=== PATIENT | male | born 1965 | race Caucasian/White ===

== ENCOUNTER 2017-11-22 00:24 | Emergency (ER) | payer OTHER ==
[~2017-11-22 00:24] MED LIST: EPINEPHrine 1:10,000 1 MG/10 ML Syringe IVPUSH ONE
[2017-11-22] MEDS ORDERED: Succinylcholine 200 MG/10 ML MDV IV ONE (00:25)
[2017-11-22] MEDS ORDERED: Sodium Chloride 0.9% 1,000 ML IV ONE ×4 (00:25→05:13)
[2017-11-22] MEDS ORDERED: EPINEPHrine 1:10,000 1 MG/10 ML Syringe IVPUSH ONE ×10 (00:27→04:01)
[2017-11-22] MEDS ORDERED: Sodium Bicarbonate 8.4% 50 MEQ/50 ML Syringe IVPUSH ONE (00:37)
[2017-11-22] MEDS ORDERED: Midazolam 1 MG/ML 2 ML SDV ONE (00:55)
[2017-11-22 01:00] LABS: CHLORIDE,CL 104 mmol/L (98-107); SODIUM,NA 140 mmol/L (136-148)
[2017-11-22] MEDS ORDERED: Midazolam 1 MG/ML 2 ML SDV IVPUSH ONE (01:10)
[2017-11-22] MEDS ORDERED: DOPamine/Dextrose 5%-Water 400 MG/250 ML BAG ONE (01:11)
[2017-11-22] MEDS ORDERED: DOPamine/Dextrose 5%-Water 400 MG/250 ML BAG IV SCH ×2 (01:17)
[2017-11-22] MEDS ORDERED: Sodium Chloride 0.9% 50 ML ONE (01:29)
--- NOTE | 2017-11-22 01:48 | EDM.PDOC ---
ED HPI GENERAL MEDICAL PROBLEM - General Chief Complaint: CPR in Progress Stated Complaint: NON RESPONSIVE Time Seen by Provider: 11/22/17 01:10 Source of Information: Reports: EMS, EMS Notes Reviewed History Limitations: Reports: No Limitations - History of Present Illness INITIAL COMMENTS - FREE TEXT/NARRATIVE: HISTORY AND PHYSICAL: History of present illness: 52-year-old male arriving by EMS with CPR in progress after witnessed collapse. As per roommate patient initially was complaining of some chest pain and then collapsed. He then called EMS. EMS states that on seeing patient was pulseless and CPR was started. Patient was given epinephrine as well as amiodarone in route. On arrival to emergency department patient was in PE a. After several rounds of epinephrine as well as 1 dose of bicarbonate we were able to establish a pulse after I removed Felice air and reintubated patient with 7.5 tube. We started Levothroid as well as dopamine to maintain blood pressure. Right femoral central line was started. Patient was transferred with Dr. Kit Villarreal accepting. Patient has a history of alcohol abuse. Of note EMS did give patient Narcan with no significant response. Initial EKG as well as troponin suggests possible WI. Review of systems: As per history of present illness and below otherwise all systems reviewed and negative. Past medical history: As per history of present illness and as reviewed below otherwise noncontributory. Surgical history: As per history of present illness and as reviewed below otherwise noncontributory. Social history: No reported history of drug or alcohol abuse. Family history: As per history of present illness and as reviewed below otherwise noncontributory. Physical exam: HEENT: Atraumatic, normocephalic, pupils reactive, negative for conjunctival pallor or scleral icterus, mucous membranes moist, throat clear, neck supple, nontender, trachea midline. Lungs: Clear to auscultation, breath sounds equal bilaterally, chest nontender. Heart: S1S2, regular, negative for clicks, rubs, or JVD. Abdomen: Soft, nondistended, nontender. Negative for masses or hepatosplenomegaly. Negative for costovertebral tenderness. Pelvis: Stable nontender. Genitourinary: Deferred. Rectal: Deferred. Extremities: Atraumatic, negative for cords or calf pain. Neurovascular unremarkable. Neuro: Awake, alert, oriented. Cranial nerves II through XII unremarkable. Cerebellum unremarkable. Motor and sensory unremarkable throughout. Exam nonfocal. Diagnostics: CBC, CMP, troponin, chest x-ray, EKG Therapeutics: Epinephrine, Levophed, dopamine, succinylcholine, 2 of Versed Impression: Cardiac arrest Plan: Please see above H&P. Definitive disposition and diagnosis as appropriate pending reevaluation and review of above. - Related Data Allergies Allergy/AdvReac Type Severity Reaction Status Date / Time Unable to Assess Allergy Unverified 11/22/17 01:15 Home Meds: Home Meds . [Unable to Verify Home Med List] 11/22/17 [History] ED ROS GENERAL - Review of Systems Review Of Systems: ROS reveals no pertinent complaints other than HPI. ED EXAM, GENERAL - Physical Exam Exam: See Below Course - Orders/Labs/Meds Orders: Active Orders 24 hr Category Date Time Status EKG Documentation Completion [RC] STAT Care 11/22/17 01:14 Active Hirsch Catheter Insertion [Insert Urinary Catheter] [OM. Care 11/22/17 04:00 Ordered PC] Q24H Urinary Catheter Assessment [RC] ASDIRECTED Care 11/22/17 04:00 Active Chest 1V Frontal [CR] Stat Exams 11/22/17 01:15 Taken DRUG SCREEN, URINE [URCHEM] Stat Lab 11/22/17 00:35 Ordered UA W/MICROSCOPIC [URIN] Stat Lab 11/22/17 00:35 Ordered Labs: Laboratory Tests 11/22/17 11/22/17 11/22/17 Range/Units 00:20 00:20 00:23 WBC 15.57 H (4.0-11.0) K/uL RBC 5.13 (4.50-5.90) M/uL Hgb 16.9 (13.0-17.0) g/dL Hct 49.8 (38.0-50.0) % MCV 97.1 (80.0-98.0) fL MCH 32.9 H (27.0-32.0) pg MCHC 33.9 (31.0-37.0) g/dL RDW Std Deviation 47.1 (28.0-62.0) fl RDW Coeff of Luz 13 (11.0-15.0) % Plt Count 168 (150-400) K/uL MPV 10.00 (7.40-12.00) fL Add Manual Diff YES Neutrophils % (Manual) 25 L (48.0-80.0) % Band Neutrophils % 6 % Lymphocytes % (Manual) 64 H (16.0-40.0) % Monocytes % (Manual) 2 (0.0-15.0) % Eosinophils % (Manual) 1 (0.0-7.0) % Basophils % (Manual) 1 (0.0-1.5) % Myelocytes % 1 % Nucleated RBC % 0.0 /100WBC Absolute Seg Neuts 3.9 (1.4-5.7) Band Neutrophils # 0.9 Lymphocytes # (Manual) 10.0 H (0.6-2.4) Monocytes # (Manual) 0.3 (0.0-0.8) Eosinophils # (Manual) 0.2 (0.0-0.7) Basophils # (Manual) 0.2 H (0.0-0.1) Absolute Myelocytes 0.2 Nucleated RBCs # 0 K/uL Sodium 140 (136-148) mmol/L Potassium 3.8 (3.5-5.1) mmol/L Chloride 104 (98-107) mmol/L Carbon Dioxide 19.2 L (21.0-32.0) mmol/L BUN 8 (7.0-18.0) mg/dL Creatinine 1.1 (0.8-1.3) mg/dL Est Cr Clr Drug Dosing TNP Estimated GFR (MDRD) > 60.0 ml/min Glucose 348 H (74-106) mg/dL POC Glucose (60-110) mg/dL Calcium 8.4 L (8.5-10.1) mg/dL Total Bilirubin 0.2 (0.2-1.0) mg/dL AST 52 H (15-37) IU/L ALT 42 (14-63) IU/L Alkaline Phosphatase 86 (46-116) U/L Troponin I 0.258 H* (0.000-0.056) ng/mL Total Protein 6.0 L (6.4-8.2) g/dL Albumin 2.7 L (3.4-5.0) g/dL Globulin 3.3 (2.0-3.5) g/dL Albumin/Globulin Ratio 0.8 L (1.3-2.8) Urine Color Urine Appearance Urine pH (5.0-8.0) Ur Specific [place] (1.001-1.035) Urine Protein (NEGATIVE) mg/dL Urine Glucose (UA) (NEGATIVE) mg/dL Urine Ketones (NEGATIVE) mg/dL Urine Occult Blood (NEGATIVE) Urine Nitrite (NEGATIVE) Urine Bilirubin (NEGATIVE) Urine Urobilinogen (<2.0) EU/dL Ur Leukocyte Esterase (NEGATIVE) Urine RBC (0-2/HPF) Urine WBC (0-5/HPF) Ur Epithelial Cells (NONE-FEW) Amorphous Sediment (NEGATIVE) Urine Bacteria (NEGATIVE) Urine Mucus (NONE-MOD) Salicylates 4.3 (0-20) mg/dL Urine Opiates Screen (NEGATIVE) Ur Oxycodone Screen (NEGATIVE) Urine Methadone Screen (NEGATIVE) Acetaminophen 0.0 ug/mL Ur Barbiturates Screen (NEGATIVE) Ur Phencyclidine Scrn (NEGATIVE) Ur Amphetamine Screen (NEGATIVE) U Methamphetamines Scrn (NEGATIVE) U Benzodiazepines Scrn (NEGATIVE) U Cocaine Metab Screen (NEGATIVE) U Marijuana (THC) Screen (NEGATIVE) Ethyl Alcohol mg/dL 11/22/17 11/22/17 11/22/17 Range/Units 00:23 00:35 00:35 WBC (4.0-11.0) K/uL RBC (4.50-5.90) M/uL Hgb (13.0-17.0) g/dL Hct (38.0-50.0) % MCV (80.0-98.0) fL MCH (27.0-32.0) pg MCHC (31.0-37.0) g/dL RDW Std Deviation (28.0-62.0) fl RDW Coeff of Luz (11.0-15.0) % Plt Count (150-400) K/uL MPV (7.40-12.00) fL Add Manual Diff Neutrophils % (Manual) (48.0-80.0) % Band Neutrophils % % Lymphocytes % (Manual) (16.0-40.0) % Monocytes % (Manual) (0.0-15.0) % Eosinophils % (Manual) (0.0-7.0) % Basophils % (Manual) (0.0-1.5) % Myelocytes % % Nucleated RBC % /100WBC Absolute Seg Neuts (1.4-5.7) Band Neutrophils # Lymphocytes # (Manual) (0.6-2.4) Monocytes # (Manual) (0.0-0.8) Eosinophils # (Manual) (0.0-0.7) Basophils # (Manual) (0.0-0.1) Absolute Myelocytes Nucleated RBCs # K/uL Sodium (136-148) mmol/L Potassium (3.5-5.1) mmol/L Chloride (98-107) mmol/L Carbon Dioxide (21.0-32.0) mmol/L BUN (7.0-18.0) mg/dL Creatinine (0.8-1.3) mg/dL Est Cr Clr Drug Dosing Estimated GFR (MDRD) ml/min Glucose (74-106) mg/dL POC Glucose (60-110) mg/dL Calcium (8.5-10.1) mg/dL Total Bilirubin (0.2-1.0) mg/dL AST (15-37) IU/L ALT (14-63) IU/L Alkaline Phosphatase (46-116) U/L Troponin I (0.000-0.056) ng/mL Total Protein (6.4-8.2) g/dL Albumin (3.4-5.0) g/dL Globulin (2.0-3.5) g/dL Albumin/Globulin Ratio (1.3-2.8) Urine Color YELLOW Urine Appearance CLEAR Urine pH 6.0 (5.0-8.0) Ur Specific [place] 1.025 (1.001-1.035) Urine Protein TRACE (NEGATIVE) mg/dL Urine Glucose (UA) NEGATIVE (NEGATIVE) mg/dL Urine Ketones NEGATIVE (NEGATIVE) mg/dL Urine Occult Blood SMALL H (NEGATIVE) Urine Nitrite NEGATIVE (NEGATIVE) Urine Bilirubin NEGATIVE (NEGATIVE) Urine Urobilinogen 0.2 (<2.0) EU/dL Ur Leukocyte Esterase TRACE (NEGATIVE) Urine RBC 0-1 (0-2/HPF) Urine WBC 2-3 (0-5/HPF) Ur Epithelial Cells FEW (NONE-FEW) Amorphous Sediment LIGHT (NEGATIVE) Urine Bacteria FEW (NEGATIVE) Urine Mucus LIGHT (NONE-MOD) Salicylates (0-20) mg/dL Urine Opiates Screen NEGATIVE (NEGATIVE) Ur Oxycodone Screen NEGATIVE (NEGATIVE) Urine Methadone Screen NEGATIVE (NEGATIVE) Acetaminophen ug/mL Ur Barbiturates Screen NEGATIVE (NEGATIVE) Ur Phencyclidine Scrn NEGATIVE (NEGATIVE) Ur Amphetamine Screen NEGATIVE (NEGATIVE) U Methamphetamines Scrn NEGATIVE (NEGATIVE) U Benzodiazepines Scrn NEGATIVE (NEGATIVE) U Cocaine Metab Screen NEGATIVE (NEGATIVE) U Marijuana (THC) Screen POSITIVE (NEGATIVE) Ethyl Alcohol 115 mg/dL 11/22/17 Range/Units 00:40 WBC (4.0-11.0) K/uL RBC (4.50-5.90) M/uL Hgb (13.0-17.0) g/dL Hct (38.0-50.0) % MCV (80.0-98.0) fL MCH (27.0-32.0) pg MCHC (31.0-37.0) g/dL RDW Std Deviation (28.0-62.0) fl RDW Coeff of Luz (11.0-15.0) % Plt Count (150-400) K/uL MPV (7.40-12.00) fL Add Manual Diff Neutrophils % (Manual) (48.0-80.0) % Band Neutrophils % % Lymphocytes % (Manual) (16.0-40.0) % Monocytes % (Manual) (0.0-15.0) % Eosinophils % (Manual) (0.0-7.0) % Basophils % (Manual) (0.0-1.5) % Myelocytes % % Nucleated RBC % /100WBC Absolute Seg Neuts (1.4-5.7) Band Neutrophils # Lymphocytes # (Manual) (0.6-2.4) Monocytes # (Manual) (0.0-0.8) Eosinophils # (Manual) (0.0-0.7) Basophils # (Manual) (0.0-0.1) Absolute Myelocytes Nucleated RBCs # K/uL Sodium (136-148) mmol/L Potassium (3.5-5.1) mmol/L Chloride (98-107) mmol/L Carbon Dioxide (21.0-32.0) mmol/L BUN (7.0-18.0) mg/dL Creatinine (0.8-1.3) mg/dL Est Cr Clr Drug Dosing Estimated GFR (MDRD) ml/min Glucose (74-106) mg/dL POC Glucose 356 H (60-110) mg/dL Calcium (8.5-10.1) mg/dL Total Bilirubin (0.2-1.0) mg/dL AST (15-37) IU/L ALT (14-63) IU/L Alkaline Phosphatase (46-116) U/L Troponin I (0.000-0.056) ng/mL Total Protein (6.4-8.2) g/dL Albumin (3.4-5.0) g/dL Globulin (2.0-3.5) g/dL Albumin/Globulin Ratio (1.3-2.8) Urine Color Urine Appearance Urine pH (5.0-8.0) Ur Specific [place] (1.001-1.035) Urine Protein (NEGATIVE) mg/dL Urine Glucose (UA) (NEGATIVE) mg/dL Urine Ketones (NEGATIVE) mg/dL Urine Occult Blood (NEGATIVE) Urine Nitrite (NEGATIVE) Urine Bilirubin (NEGATIVE) Urine Urobilinogen (<2.0) EU/dL Ur Leukocyte Esterase (NEGATIVE) Urine RBC (0-2/HPF) Urine WBC (0-5/HPF) Ur Epithelial Cells (NONE-FEW) Amorphous Sediment (NEGATIVE) Urine Bacteria (NEGATIVE) Urine Mucus (NONE-MOD) Salicylates (0-20) mg/dL Urine Opiates Screen (NEGATIVE) Ur Oxycodone Screen (NEGATIVE) Urine Methadone Screen (NEGATIVE) Acetaminophen ug/mL Ur Barbiturates Screen (NEGATIVE) Ur Phencyclidine Scrn (NEGATIVE) Ur Amphetamine Screen (NEGATIVE) U Methamphetamines Scrn (NEGATIVE) U Benzodiazepines Scrn (NEGATIVE) U Cocaine Metab Screen (NEGATIVE) U Marijuana (THC) Screen (NEGATIVE) Ethyl Alcohol mg/dL Meds: Medications Discontinued Medications Generic Name Dose Route Start Last Admin Trade Name Freq PRN Reason Stop Dose Admin Epinephrine HCl 1 mg 11/22/17 04:01 Epinephrine 1:10,000 IVPUSH 11/22/17 04:02 ONETIME ONE Epinephrine HCl 1 mg 11/22/17 00:23 11/22/17 00:24 Epinephrine 1:10,000 IVPUSH 11/22/17 00:24 1 mg ONETIME ONE Administration Epinephrine HCl 1 mg 11/22/17 00:27 11/22/17 00:27 Epinephrine 1:10,000 IVPUSH 11/22/17 00:28 1 mg ONETIME ONE Administration Epinephrine HCl 1 mg 11/22/17 00:31 11/22/17 00:31 Epinephrine 1:10,000 IVPUSH 11/22/17 00:32 1 mg ONETIME ONE Administration Epinephrine HCl 1 mg 11/22/17 00:35 11/22/17 00:35 Epinephrine 1:10,000 IVPUSH 11/22/17 00:36 1 mg ONETIME ONE Administration Epinephrine HCl 1 mg 11/22/17 00:49 11/22/17 00:49 Epinephrine 1:10,000 IVPUSH 11/22/17 00:50 1 mg ONETIME ONE Administration Epinephrine HCl 1 mg 11/22/17 01:15 11/22/17 01:15 Epinephrine 1:10,000 IVPUSH 11/22/17 01:16 1 mg ONETIME ONE Administration Epinephrine HCl 1 mg 11/22/17 02:27 11/22/17 02:27 Epinephrine 1:10,000 IVPUSH 11/22/17 02:28 1 mg ONETIME ONE Administration Epinephrine HCl 1 mg 11/22/17 02:31 11/22/17 02:31 Epinephrine 1:10,000 IVPUSH 11/22/17 02:32 1 mg ONETIME ONE Administration Epinephrine HCl 1 mg 11/22/17 02:33 11/22/17 02:33 Epinephrine 1:10,000 IVPUSH 11/22/17 02:34 1 mg ONETIME ONE Administration Epinephrine HCl 1 mg 11/22/17 02:38 11/22/17 02:38 Epinephrine 1:10,000 IVPUSH 11/22/17 02:39 1 mg ONETIME ONE Administration Furosemide Confirm 11/22/17 02:05 11/22/17 05:45 Lasix Administered 11/22/17 02:06 Not Given Dose 40 mg .ROUTE .STK-MED ONE Furosemide 40 mg 11/22/17 03:29 11/22/17 02:08 Lasix IVPUSH 11/22/17 03:30 40 mg NOW ONE Administration Norepinephrine Bitartrate Confirm 11/22/17 00:48 Norepinephr-0.9% Nacl 4 Mg/250 Administered 11/22/17 00:49 Dose 4 mg in 250 mls @ as directed IV .STK-MED ONE Dopamine HCl/Dextrose Confirm 11/22/17 01:11 Dopamine In D5w 400 Mg/250 Ml Administered 11/22/17 01:12 Dose 400 mg in 250 mls @ as directed .ROUTE .STK-MED ONE Sodium Chloride Confirm 11/22/17 01:29 Normal Saline Administered 11/22/17 01:30 Dose 50 mls @ as directed .ROUTE .STK-MED ONE Ceftriaxone Sodium/Dextrose Confirm 11/22/17 01:34 Rocephin In Dextrose,Iso-Osm 1 Gm/50 Ml Administered 11/22/17 01:35 Dose 50 mls @ as directed .ROUTE .STK-MED ONE Ceftriaxone Sodium 1 gm/ 50 mls @ 100 mls/hr 11/22/17 03:28 11/22/17 01:37 Sodium Chloride IV 11/22/17 03:57 100 mls/hr ONETIME ONE Administration Piperacillin Sod/Tazobactam 50 mls @ 100 mls/hr 11/22/17 03:29 11/22/17 01:34 Sod 3.375 gm/ Sodium Chloride IV 11/22/17 03:58 100 mls/hr ONETIME ONE Administration Sodium Chloride 1,000 mls @ 999 mls/hr 11/22/17 00:25 11/22/17 00:25 Normal Saline IV 11/22/17 01:25 999 mls/hr .Bolus ONE Administration Sodium Chloride 1,000 mls @ 999 mls/hr 11/22/17 01:13 11/22/17 01:13 Normal Saline IV 11/22/17 02:13 999 mls/hr .Bolus ONE Administration Midazolam HCl Confirm 11/22/17 00:55 11/22/17 05:39 Versed 1 Mg/Ml Administered 11/22/17 00:56 Not Given Dose 4 mg .ROUTE .STK-MED ONE Midazolam HCl 2 mg 11/22/17 01:10 11/22/17 00:57 Versed 1 Mg/Ml IVPUSH 11/22/17 01:11 2 mg ONETIME ONE Administration Sodium Bicarbonate 50 meq 11/22/17 00:37 11/22/17 00:37 Sodium Bicarbonate 8.4% IVPUSH 11/22/17 00:38 50 meq ONETIME ONE Administration Departure - Departure Time of Disposition: 01:48 Disposition: DC/Tfer to Other 70 Condition: Critical Clinical Impression: Cardiac arrest - Discharge Information Referrals: PCP,None [Primary Care Provider] - Forms: ED Department Discharge - My Orders Last 24 Hours: My Active Orders 11/22/17 00:35 DRUG SCREEN, URINE [URCHEM] Stat UA W/MICROSCOPIC [URIN] Stat 11/22/17 01:14 EKG Documentation Completion [RC] STAT 11/22/17 01:15 Chest 1V Frontal [CR] Stat 11/22/17 04:00 Hirsch Catheter Insertion [Insert Urinary Catheter] [OM.PC] Q24H Urinary Catheter Assessment [RC] ASDIRECTED - Assessment/Plan Last 24 Hours: My Active Orders 11/22/17 00:35 DRUG SCREEN, URINE [URCHEM] Stat UA W/MICROSCOPIC [URIN] Stat 11/22/17 01:14 EKG Documentation Completion [RC] STAT 11/22/17 01:15 Chest 1V Frontal [CR] Stat 11/22/17 04:00 Hirsch Catheter Insertion [Insert Urinary Catheter] [OM.PC] Q24H Urinary Catheter Assessment [RC] ASDIRECTED
[2017-11-22] MEDS ORDERED: DEXTROSE 5% IV SCH ×4 (01:56)
[2017-11-22] MEDS ORDERED: EPINEPHRINE IV SCH ×4 (01:56)
[2017-11-22] MEDS ORDERED: WATER IV SCH ×4 (01:56)
[2017-11-22] MEDS ORDERED: Furosemide 40 MG/4 ML VIAL ONE (02:05)
--- NOTE | 2017-11-22 02:32 | PCM.SN ---
- Free Text/Narrative Note: Called STAT to ER to assist with Cardiac arrest. CPR in progress, Felice airway in-place. BS=BS although faint. Option /ER MD to ET patient. Hyperventilated. Succinylcholine 100mg given IV. ET by MD. BS=BS. Tube secured. Ventilated until RT tookover. Total may: 30 minutes.
[2017-11-22] MEDS ORDERED: cefTRIAXone 1 GM in Sodium Chloride 0.9% 50 ML IV ONE (03:28)
[2017-11-22] MEDS ORDERED: Piperacillin/Tazobactam 3.375 GM in Sodium Chloride 0.9% 50 ML IV ONE (03:29)
[2017-11-22] MEDS ORDERED: Furosemide 40 MG/4 ML VIAL IVPUSH ONE (03:29)
--- NOTE | 2017-11-22 10:26 | CR ---
EXAM DATE: 11/22/17 PATIENT'S AGE: 52 Patient: DANNY CADET Facility: [place], [place] Site . Site : [id number] Study: XRay Chest [id number]/28/2018 1:38:28 AM Ordering Physician: Doctor Lockwood Final Report: Indication: Cardiac arrest. Tube placement Technique: Chest 1 view Comparison: None Findings/Impression: An endotracheal tube with the tip at the level of the clavicular heads. A nasogastric tube with its tip below the diaphragm. A pad projecting over the right mid and lower lung, partially obscuring detail. Borderline cardiomegaly. Elevated right hemidiaphragm. Diffuse ill-defined bilateral pulmonary interstitial opacities, right perihilar alveolar opacities and retrocardiac air bronchograms. Correlate for pulmonary edema and/or infectious infiltrates. Apparent minimal blunting of the right costophrenic angle could represent trace fluid. Dictated by Fransisco Garcia MD @ 11/22/2017 1:46:27 AM Dictated by: Fransisco Garcia MD @ 11/22/2017 01:46:31 (Electronic Signature) Report Signed by Proxy. ELI
== END 2017-11-22 03:08 ==
LOC: MW.ED 00:24
DX: I46.9 Cardiac arrest, cause unspecified (principal)
CPT/HCPCS: 31500; 36556; 51702; 71045; 80053; 80305; 81001; 82962; 84484; 85025; 92950; 93005; 96365; 96366; 96374; 96375; 99291; 99292; G0480; J0171; J0330; J0696; J1265; J1940; J2250; J2543; J7040; J7050; J7060; 43753; 94002; 99285